=== PATIENT | female | born 1945 | race Caucasian/White ===

== ENCOUNTER 2018-08-25 13:41 | Emergency (ER) | payer BC, MEDICARE ==
[2018-08-25 13:47] VITALS: RESP 16; TEMP 97.9
[2018-08-25 15:00] LABS: Basophils % (A) 0 %; Eosinophils # (A) 0.1 k/uL (0-0.7); Eosinophils % (A) 2 %; HCT 39.7 % (34.0-46.0); HGB 12.6 gm/dL (11.4-16.0); Lymphocytes # (A) 1.6 k/uL (1.0-4.8); Lymphocytes % (A) 22 %; MCH 28.4 pg (25.0-35.0); MCHC 31.6 g/dL (31.0-37.0); MCV 89.8 fL (80.0-100.0); Mean Platelet Volume 6.8; Monocytes # (A) 0.4 k/uL (0-1.0); Monocytes % (A) 5 %; Neutrophils # (A) 5.1 k/uL (1.3-7.7); Neutrophils % (A) 69 %; Platelet Count 215 k/uL (150-450); RBC 4.42 m/uL (3.80-5.40); RDW 13.7 % (11.5-15.5); WBC 7.4 k/uL (3.8-10.6)
[2018-08-25 15:03] LABS: ALT 27 U/L (9-52); AST 24 U/L (14-36); Alkaline Phosphatase 76 U/L (38-126); Anion Gap 8 mmol/L; Blood Urea Nitrogen 16 mg/dL (7-17); Calcium 10.6 mg/dL (8.4-10.2); Carbon Dioxide 28 mmol/L (22-30); Chloride 101 mmol/L (98-107); Glucose 95 mg/dL (74-99); Magnesium 1.8 mg/dL (1.6-2.3); Potassium 4.3 mmol/L (3.5-5.1); Sodium 137 mmol/L (137-145); Total Bilirubin 0.5 mg/dL (0.2-1.3); Total Protein 7.2 g/dL (6.3-8.2)
[2018-08-25 15:04] LABS: Partial Thromboplastin Time 24.4 sec (22.0-30.0); Prothrombin Time 10.9 sec (9.0-12.0)
--- NOTE | 2018-08-25 15:05 | XR ---
EXAMINATION TYPE: XR chest 2V DATE OF EXAM: 08/25/2018 COMPARISON: NONE HISTORY: Chest and back pain. TECHNIQUE: Frontal and lateral views of the chest are obtained. FINDINGS: There is chronic emphysematous change without suspicious focal air space opacity, pleural effusion, or pneumothorax seen. The cardiac silhouette size is within normal limits. The osseous s tructures are demineralized. Left axillary surgical clips are noted. IMPRESSION: Chronic emphysematous change without acute pulmonary process.
--- NOTE | 2018-08-25 15:58 | ED ---
Chest Pain HPI - General Chief Complaint: Chest Pain Stated Complaint: chest pain-sent by Dr. Mann Seen by Provider: 08/25/18 14:16 Source: patient Mode of arrival: ambulatory Limitations: no limitations - History of Present Illness Initial Comments: This patient is a 72-year-old woman who presents to be evaluated after she had an episode of back pain and also chest pain. 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 She states that she was not really exerting herself or doing heavy lifting, she was serving food, but she felt pain across her back. She states the pain was mild, aching. She also felt some pain at the sternal border on and left chest but she states she has this and attributes it to her mastectomy scar. The patient went to see her physician, Dr. Leung, who performed an EKG and then sent her here to be evaluated. She does bring EKG which shows a sinus tachycardia at 102 bpm. IV patient did not have nausea or vomiting, dyspnea, diaphoresis, palpitations or lightheadedness. She states she is feeling well. MD Complaint: chest pain -: hour(s) Onset: other Pain Location: substernal Pain Radiation: none Severity: mild Quality: aching Consistency: now resolved Improves With: nothing Worsens With: nothing Treatments Prior to Arrival: none - Related Data Home Medications Medication Instructions Recorded Confirmed Aspirin [Adult Low Dose Aspirin EC] 81 mg PO DAILY 04/13/16 08/25/18 Calcium Citrate With Vitamin D 1 tab PO DAILY 04/13/16 08/25/18 Multivit-Min/Iron/Folic/Lutein 1 each PO DAILY 04/13/16 08/25/18 [Centrum Silver Women Tablet] Olmesartan [Benicar] 10 mg PO DAILY 04/13/16 08/25/18 Raloxifene [Evista] 60 mg PO DAILY 04/13/16 08/25/18 Simvastatin [Zocor] 20 mg PO HS 04/13/16 08/25/18 Acetaminophen Tab [Tylenol Tab] 325 mg PO Q4H PRN 08/25/18 08/25/18 Loratadine [Claritin] 10 mg PO DAILY 08/25/18 08/25/18 Allergies Allergy/AdvReac Type Severity Reaction Status Date / Time DAVIE Inhibitors Allergy Unknown Unknown Verified 08/25/18 14:29 amoxicillin Allergy Unknown Swelling Verified 08/25/18 14:29 of Face methylprednisolone Allergy Unknown Itching, Verified 08/25/18 14:29 Jittery Sulfa (Sulfonamide Allergy Unknown Itching Verified 08/25/18 14:29 Antibiotics) Review of Systems ROS Statement: Those systems with pertinent positive or pertinent negative responses have been documented in the HPI. ROS Other: All systems not noted in ROS Statement are negative. Constitutional: Denies: fever, chills Respiratory: Denies: cough, dyspnea Cardiovascular: Reports: as per HPI, chest pain. Denies: palpitations, orthopnea, edema, syncope Gastrointestinal: Reports: diarrhea. Denies: abdominal pain, vomiting, constipation, melena, hematochezia Genitourinary: Denies: dysuria, hematuria Musculoskeletal: Reports: as per HPI, back pain Skin: Denies: rash Neurological: Denies: headache, weakness, numbness, paresthesias EKG Findings - EKG Results: EKG: interpreted by JUDY SCOTT, sinus rhythm (Rate 79 bpm), normal axis, normal QRS, normal ST/T, no acute changes - [place], Pacemaker, Normal: Normal tracing: normal tracing Past Medical History Past Medical History: Cancer, Hyperlipidemia, Hypertension, Osteoarthritis (OA) Additional Past Medical History / Comment(s): BREAST CANCER (1996), OSTEOPENIA. History of Any Multi-Drug Resistant Organisms: None Reported Past Surgical History: Breast Surgery, Tubal Ligation Additional Past Surgical History / Comment(s): LEFT MASTECTOMY (1996), CATARACT LEFT EYE. Past Anesthesia/Blood Transfusion Reactions: No Reported Reaction Past Psychological History: No Psychological Hx Reported Smoking Status: Former smoker Past Alcohol Use History: None Reported Past Drug Use History: None Reported - Past Family History Sister(s) Family Medical History: Cancer Additional Family Medical History / Comment(s): ORAL CANCER General Exam Limitations: no limitations General appearance: alert, in no apparent distress Head exam: Present: atraumatic, normocephalic Eye exam: Present: normal appearance Neck exam: Present: normal inspection Respiratory exam: Present: normal lung sounds bilaterally. Absent: respiratory distress, wheezes, rales, rhonchi, stridor Cardiovascular Exam: Present: regular rate, normal rhythm, normal heart sounds. Absent: systolic murmur, diastolic murmur, rubs, gallop GI/Abdominal exam: Present: soft. Absent: distended, tenderness, guarding, rebound, rigid, mass Extremities exam: Present: normal inspection, normal capillary refill. Absent: pedal edema, calf tenderness Back exam: Present: normal inspection. Absent: vertebral tenderness Neurological exam: Present: alert Skin exam: Present: warm, dry, intact, normal color. Absent: rash Course Vital Signs 08/25/18 08/25/18 13:44 16:31 Temperature 97.9 F Pulse Rate 98 88 Respiratory 16 16 Rate Blood Pressure 158/72 143/69 O2 Sat by Pulse 98 98 Oximetry Chest Pain MDM - MDM Patient is 72-year-old woman with atypical chest pain and normal EKG. Her initial workup is negative and she is feeling well. We discussed admission for telemetry and serial cardiac enzymes, but at this point she is feeling totally asymptomatic and would rather follow as outpatient. We discussed appropriate further care and follow-up as well as return parameters. All questions answered. Disposition Clinical Impression: Chest pain Disposition: HOME SELF-CARE Condition: Good Instructions (If sedation given, give patient instructions): Chest Pain (ED) Is patient prescribed a controlled substance at d/c from ED?: No Referrals: Odilon Leung MD [Primary Care Provider] - 1-2 days Klaudia Neville MD [STAFF PHYSICIAN] - 1-2 days
[2018-08-25 16:32] VITALS: BP 143/69; PULSE 88
== END 2018-08-25 16:31 | disposition home or self-care (01) ==
LOC: EC 13:41
DX: R07.89 Other chest pain (principal); M54.9 Dorsalgia, unspecified; E78.5 Hyperlipidemia, unspecified; I10 Essential (primary) hypertension; M19.90 Unspecified osteoarthritis, unspecified site; Z87.891 Personal history of nicotine dependence; Z88.0 Allergy status to penicillin; Z88.2 Allergy status to sulfonamides; Z88.8 Allergy status to other drugs, medicaments and biological substances; Z79.82 Long term (current) use of aspirin; Z79.899 Other long term (current) drug therapy; Z85.3 Personal history of malignant neoplasm of breast; Z90.12 Acquired absence of left breast and nipple; Z87.39 Personal history of other diseases of the musculoskeletal system and connective tissue
CPT/HCPCS: 36415; 71046; 80053; 83735; 84484; 85025; 85379; 85610; 85730; 93005; 99285

== ENCOUNTER → 2022-09-23 | Outpatient (CLI) | payer MEDICARE ==
[2022-09-23 14:27] LABS: Basophils # (A) 0.02 X 10*3/uL (0.00-0.10); Basophils % (A) 0.3 %; Eosinophils # (A) 0.13 X 10*3/uL (0.04-0.35); HCT 40.5 % (37.2-46.3); HGB 12.9 g/dL (12.0-15.0); Immature Grans, Automated 0.3 %; Lymphocytes # (A) 1.81 X 10*3/uL (0.90-5.00); Lymphocytes % (A) 27.6 %; MCH 29.9 pg (27.0-32.0); MCHC 31.9 g/dL (32.0-37.0); MCV 93.8 fL (80.0-97.0); Mean Platelet Volume 9.4 fL (9.5-12.2); Monocytes # (A) 0.65 X 10*3/uL (0.20-1.00); Monocytes % (A) 9.9 %; NRBC Per 100 WBC 0 /100 WBCS (0.0-0.0); Neutrophils # (A) 3.93 X 10*3/uL (1.80-7.70); Neutrophils % (A) 59.9 %; Platelet Count 207 X 10*3/uL (140-440); RBC 4.32 X 10*6/uL (4.10-5.20); RDW 14.1 % (11.5-14.5); WBC 6.56 X 10*3/uL (4.50-10.00)
[2022-09-23 16:09] LABS: ALT 13 U/L (8-44); AST 23 U/L (13-35); Albumin 4.3 g/dL (3.8-4.9); Albumin/Globulin Ratio 1.44 (1.60-3.17); Alkaline Phosphatase 71 U/L (41-126); BUN/Creat Ratio 29.31 Ratio (12.00-20.00); Blood Urea Nitrogen 19.2 mg/dL (9.0-27.0); Calcium 9.3 mg/dL (8.7-10.3); Carbon Dioxide 21.3 mmol/L (20.0-27.5); Chloride 105 mmol/L (96-109); Chol/HDL Ratio 2.49 Ratio; Creatine Kinase 53 U/L (26-186); Glucose 97 mg/dL (70-110); LDL Cholesterol,Calculated 45.1 mg/dL (0.0-131.0); Non-African American GFR(CKD) 85.4 (60.0-200.0); Potassium 4.4 mmol/L (3.5-5.5); Sodium 140 mmol/L (135-145); Total Protein 7.2 g/dL (6.2-8.2)
== END | disposition home or self-care (01) ==
LOC: LABPAT 10:40
PROVIDERS: ATTEND Physician Assistant Medical
DX: Z13.1 Encounter for screening for diabetes mellitus (principal); M25.50 Pain in unspecified joint; E78.5 Hyperlipidemia, unspecified; R53.83 Other fatigue
CPT/HCPCS: 80053; 80061; 82306; 82550; 83036; 84443; 85025

== ENCOUNTER → 2023-04-14 | Outpatient (CLI) | payer MEDICARE ==
[2023-04-14 18:09] LABS: Chol/HDL Ratio 2.44 Ratio
== END | disposition home or self-care (01) ==
LOC: LABWHC1 11:11
PROVIDERS: ATTEND Family Medicine
DX: E78.00 Pure hypercholesterolemia, unspecified (principal)
CPT/HCPCS: 36415; 80061

== ENCOUNTER → 2023-11-15 | Outpatient (CLI) | payer MEDICARE ==
[2023-11-15 15:39] LABS: BUN/Creat Ratio 25.86 Ratio (12.00-20.00); Blood Urea Nitrogen 18.1 mg/dL (9.0-27.0); Carbon Dioxide 26.3 mmol/L (21.6-31.8); Chloride 101 mmol/L (96-109); Chol/HDL Ratio 2.13 Ratio; Glucose 92 mg/dL (70-110); LDL Cholesterol,Calculated 37.1 mg/dL (0.0-131.0); Potassium 4.4 mmol/L (3.5-5.5); Sodium 137 mmol/L (135-145)
[2023-11-15 15:40] LABS: ALT 16 U/L (8-44); AST 22 U/L (13-35); Albumin 4.4 g/dL (3.8-4.9); Albumin/Globulin Ratio 1.69 Ratio (1.60-3.17); Alkaline Phosphatase 66 U/L (41-126); Calcium 9.4 mg/dL (8.7-10.3); Globulin 2.6 g/dL (1.6-3.3); Total Bilirubin 0.3 mg/dL (0.3-1.2)
[2023-11-15 16:04] LABS: Basophils # (A) 0.02 X 10*3/uL (0.00-0.10); Basophils % (A) 0.3 %; Eosinophils # (A) 0.16 X 10*3/uL (0.04-0.35); Eosinophils % (A) 2.5 %; HCT 40.2 % (37.2-46.3); HGB 12.9 g/dL (12.0-15.0); Lymphocytes # (A) 1.75 X 10*3/uL (0.90-5.00); Lymphocytes % (A) 27.5 %; MCH 29.9 pg (27.0-32.0); MCHC 32.1 g/dL (32.0-37.0); MCV 93.1 FL (80.0-97.0); Mean Platelet Volume 9.7 FL (9.5-12.2); Monocytes # (A) 0.49 X 10*3/uL (0.20-1.00); Monocytes % (A) 7.7 %; NRBC Per 100 WBC 0 X 10*3/uL (0.00-0.01); Neutrophils # (A) 3.94 X 10*3/uL (1.80-7.70); Neutrophils % (A) 61.8 %; Platelet Count 214 X 10*3/uL (140-440); RBC 4.32 X 10*6/uL (4.10-5.20); RDW 14.1 % (11.5-14.5); WBC 6.37 X 10*3/uL (4.50-10.00)
== END | disposition home or self-care (01) ==
LOC: LABWHC1 11:30
PROVIDERS: ATTEND Family Medicine
DX: Z00.01 Encounter for general adult medical examination with abnormal findings (principal); E78.2 Mixed hyperlipidemia
CPT/HCPCS: 36415; 80053; 80061; 83036; 85025

== ENCOUNTER → 2024-10-03 | Outpatient (CLI) | payer MEDICARE ==
--- NOTE | 2024-10-04 15:10 | MR ---
EXAMINATION TYPE: MR brain and iac wo/w con DATE OF EXAM: 10/03/2024 6:42 PM COMPARISON: None. CLINICAL INDICATION: Female, 78 years old with history of R42 DIZZY GIDDY, Vertigo, ear infections, l eft side hearing loss, giddiness. IV Contrast: 6 cc Gadobutrol TECHNIQUE: Multiplanar, multisequence images of the brain and brainstem is performed without and with IV contras t, utilizing 6 mL intravenous Gadobutrol.Specialized thin sequences were obtained through the interna l auditory canals. FINDINGS: The medellin-white junctions and basal cisterns appear unremarkable. Diffusion-weighted imagi ng shows no evidence of restricted diffusion. Age-appropriate cerebral volume loss with prominence of the peripheral sulci. Mild prominence of the ventricular system related to cerebral volume loss. Pat nicolas areas of high T2/FLAIR signal intensity are seen within the supratentorial periventricular and leary bcortical white matter. No abnormality on susceptibility weighted imaging. After administration of g adolinium, no abnormal enhancement is seen. Bilateral aphakia. Minimal mucosal thickening in the ethm oid sinuses. There is a type I right anterior inferior cerebellar artery vascular loop. The right 7th and 8th cran ial nerves appear unremarkable. No mass identified within the cerebellar pontine angle. The left 7th cranial nerves, 8 cranial nerves, and cerebellar pontine angle appears unremarkable. After the admin istration gadolinium, no abnormal enhancement is seen within the internal auditory canals. IMPRESSION: 1. No evidence of intracranial mass, acute/subacute infarct, or abnormal enhancement. 2. Nonspecific mild to moderate white matter changes, likely related to small vessel ischemic disease versus other etiologies. 3. No cerebral pontine angle mass. 4. Type I right vascular loop. [facility], , 10/04/2024 3:08 PM
== END | disposition home or self-care (01) ==
LOC: RADMRIMAIN 17:34
PROVIDERS: ATTEND Family Medicine
DX: R90.82 White matter disease, unspecified (principal); Q28.1 Other malformations of precerebral vessels
CPT/HCPCS: 70553; A9585

== ENCOUNTER → 2024-11-02 | Outpatient (CLI) | payer MEDICARE ==
--- NOTE | 2024-11-03 12:23 | CT ---
EXAMINATION TYPE: CT sinus wo con DATE OF EXAM: 11/02/2024 5:31 PM COMPARISON: None. CLINICAL INDICATION: Female, 78 years old with history of J32.9 CHRONIC SINUSITIS, UNSPECIFIED, Verti go. Fusion protocol. TECHNIQUE: The paranasal sinuses are examined in the axial plane at 2 mm thick sections. Reconstruct ed images in the coronal plane were obtained. Contrast used: mL of , (none if empty) Oral contrast used: (none if empty) CT DLP: 693 mGycm, Automated exposure control for dose reduction was used. FINDINGS: There is dental amalgam scatter artifact The maxillary sinuses are clear. The ethmoid air cells are clear. The sphenoid sinuses are clear. The frontal sinuses are clear. The septum is evaluated. There is septal deviation to the left. Left septal spur is present The ostiomeatal units are patent. IMPRESSION: 1. No suspicious acute or chronic sinusitis changes. 2. Left septal deviation. [facility], , 11/03/2024 12:21 PM
== END | disposition home or self-care (01) ==
LOC: RADCTMAIN 16:31
PROVIDERS: ATTEND Otolaryngology
DX: J32.9 Chronic sinusitis, unspecified (principal); J34.2 Deviated nasal septum
CPT/HCPCS: 70486

== ENCOUNTER → 2025-01-04 | Outpatient (CLI) | payer MEDICARE ==
--- NOTE | 2025-01-04 15:26 | MM ---
Reason for Exam: Screening (asymptomatic). Last mammogram was performed 1 year(s) and 2 month(s) ago. Patient History: Menarche at age 13. First Full-Term at age 29. Late child-bearing (after 29). Postmenopausal. Patient has history of breast feeding. Breast cancer, left, age 51. Patient used Hormonal Contraceptives for 4 years. 02/1997, Mastectomy on the Left side. 02/1997, Chemotherapy. Paternal cousin had breast cancer at or over age 50. Prior Study Comparison: 11/04/2022 Right MG 3D diag mammo w/cad RT - 2, [facility]. 11/09/2023 Right MG 3D diag mammo w/cad RT - 2, [facility]. Tissue Density: Right: The breasts are heterogeneously dense, which may obscure small masses. Findings: A few benign-appearing small round calcifications in the right breast are redemonstrated. Benign-appearing right axillary lymph nodes are seen. There is no suspicious group of microcalcifications or new suspicious mass in the right breast. Overall Assessment: Benign, BI-RAD 2 Management: Screening Mammogram of the right breast in 1 year. . Patient should continue monthly self-breast exams. A clinical breast exam by your physician is recommended on an annual basis. This exam should not preclude additional follow-up of suspicious palpable abnormalities. Note on Rosa scores and lifetime risk: 1. A Rosa score greater than 3% is considered moderate risk. If this is the case, consider specialist referral to assess eligibility for a risk reducing agent. 2. If overall lifetime risk for the development of breast cancer is 20% or higher, the patient may qualify for future screening with alternating mammogram and breast MRI. [facility], , 01/04/2025 3:23 PM. Electronically signed and approved by: Abraham Hernandez M.D.
== END | disposition home or self-care (01) ==
LOC: RADMAMWWP 13:23
PROVIDERS: ATTEND Family Medicine
DX: Z12.31 Encounter for screening mammogram for malignant neoplasm of breast (principal); R92.331 Mammographic heterogeneous density, right breast; R92.1 Mammographic calcification found on diagnostic imaging of breast; Z78.0 Asymptomatic menopausal state; Z80.3 Family history of malignant neoplasm of breast; Z85.3 Personal history of malignant neoplasm of breast; Z92.0 Personal history of contraception
CPT/HCPCS: 77067